=== PATIENT | female | born 1950 | race Caucasian/White ===

== ENCOUNTER → 2018-01-19 10:24 | Outpatient (CLI) | payer MEDICARE, SELFPAY ==
--- NOTE | 2018-01-19 | DI.RAD.S_ITS ---
This blank DEXA report has been sent in error by the PACS system. The correct and complete report will be forthcoming in 1-2 days. Thank you for your patience and understanding. Dictated by: Ashley Otoole MD, PhD on 01/19/2018 at 11:16 Approved by: Ashley Otoole MD, PhD on 01/19/2018 at 11:17
[2018-01-19 12:10] LABS: Add Manual Diff / Slide Review NO; Basophils Percent Auto 0.9 % (0-2); Eosinophils Percent Auto 3.2 % (2-4); Hematocrit 42.5 % (36-46); Hemoglobin 14.2 g/dL (12.0-16.0); Lymphocytes Percent Auto 31.6 % (25-40); Mean Corpuscular HGB Conc 33.4 % (30-36); Mean Corpuscular Hemoglobin 29.3 PG (26-34); Mean Corpuscular Volume 87.8 fL (80-100); Monocytes Percent Auto 8.1 % (3-14); Neutrophils Absolute Auto 2300 /uL (3000-5900); Neutrophils Percent Auto 56.2 % (50-75); Platelet Count 321 X10^3/uL (150-400); Red Blood Cell Count 4.84 X10^6/uL (4.0-5.2); Red Cell Distribution Width 12.7 % (11.6-14.8); White Blood Cell Count 4.2 X10^3/uL (4.5-11.0)
[2018-01-19 12:23] LABS: Alanine Aminotransferase 25 IU/L (9-52); Albumin 4.6 g/dL (3.5-5.0); Albumin Globulin Ratio 1.4 (1.0-2.8); Alkaline Phosphatase 167 U/L (38-126); Aspartate Aminotransferase 30 IU/L (14-36); BUN Creatinine Ratio 16.7 (6-22); Bilirubin Total 0.5 mg/dL (0.2-1.3); Blood Urea Nitrogen 15 mg/dL (7-17); Calcium 9.9 mg/dL (8.4-10.2); Carbon Dioxide 34 mmol/L (22-32); Chloride 98 mmol/L (98-107); Estimated Glomerular Filt Rate > 60.0 mL/min (>60); Globulin 3.2 g/dL (1.7-4.1); Glucose 89 mg/dL (80-110); HEMOLYSIS < 15 (0-50); Sodium 144 mmol/L (137-145); Total Protein 7.8 g/dL (6.3-8.2)
[2018-01-19 12:37] LABS: Free T4, Direct Thyroxine 1.24 ng/dL (0.78-2.19)
[2018-01-19 12:51] LABS: Thyroid Stimulating Hormone 1.53 uIU/mL (0.47-4.68)
[2018-01-19 14:57] LABS: Vitamin D 25 Hydroxy (D3) 43.4 ng/mL (30.0-100.0)
== END ==
PROVIDERS: PCP Internal Medicine; Visit Provider Nurse Practitioner Family
DX: M81.0 Age-related osteoporosis without current pathological fracture (principal); Z78.0 Asymptomatic menopausal state; R53.83 Other fatigue; E55.9 Vitamin D deficiency, unspecified; Z13.6 Encounter for screening for cardiovascular disorders; Z82.62 Family history of osteoporosis; Z51.81 Encounter for therapeutic drug level monitoring
CPT/HCPCS: 36415; 77080; 80053; 82306; 84439; 84443; 84481; 85025

== ENCOUNTER → 2018-02-28 17:18 | Outpatient (CLI) | payer MEDICARE, SELFPAY ==
--- NOTE | 2018-02-28 | DI.RAD.S_ITS ---
PROCEDURE: XR LUMBAR SPINE MIN 4V INDICATIONS: PAIN TECHNIQUE: 5 views of the lumbar spine were acquired including both obliques. COMPARISON: None. FINDINGS: Bones: 5 nonrib-bearing vertebrae are present. There is levoscoliotic bony alignment centered at L3, 28? convex leftward. On the frontal projection there is also near vikv-mo-iutn articulation between the endplates of L2 and L3 with approximately 1 cm of rightward subluxation of the L2 vertebral body across the upper end plate of L3. Xyby-ei-etwk apposition along the right margin of the L3-4 disc space is present. There is moderately severe to severe degenerative disc disease and facet osteoarthritis from L2 inferiorly with likelihood of significant spinal and foraminal stenosis as a result. No vertebral body compression fractures. No suspicious bony lesions. Soft tissues: Overlying bowel gas pattern is normal except for generalized colonic obstipation. No suspicious soft tissue calcifications. Oblique images: No pars defects. IMPRESSION: Degenerative disc disease and facet osteoarthritis is moderately severe to severe from L2 inferiorly, and this is associated with prominent convex leftward scoliosis centered at all 3 knee with svbh-gu-oplh articulation at the L2-3 disc space across the surface of the endplates and right-sided L3-L4 dbwp-kt-[id number] articulation. Abnormal lateral subluxation is present, rightward, of L2 on L3 by approximately 1 cm. Significant spinal or foraminal stenosis would be expected given the degree of degenerative disc disease, facet osteoarthritis, and also scoliosis. No acute trauma found. Dictated by: Surjit Riley M.D. on 03/01/2018 at 8:39 Approved by: Surjit Riley M.D. on 03/01/2018 at 8:45
== END ==
PROVIDERS: PCP Internal Medicine; Visit Provider Chiropractor
DX: M51.36 Other intervertebral disc degeneration, lumbar region (principal); M47.816 Spondylosis without myelopathy or radiculopathy, lumbar region; M99.02 Segmental and somatic dysfunction of thoracic region; M99.01 Segmental and somatic dysfunction of cervical region; S29.012A Strain of muscle and tendon of back wall of thorax, initial encounter; M54.5 Low back pain
CPT/HCPCS: 72110

== ENCOUNTER → 2019-02-11 09:49 | Outpatient (CLI) | payer MEDICARE, SELFPAY ==
[2019-02-11 10:43] LABS: Alanine Aminotransferase 21 IU/L (9-52); Albumin 4.4 g/dL (3.5-5.0); Albumin Globulin Ratio 1.6 (1.0-2.8); Alkaline Phosphatase 107 U/L (38-126); Aspartate Aminotransferase 29 IU/L (14-36); BUN Creatinine Ratio 17.5 (6-22); Bilirubin Total 0.6 mg/dL (0.2-1.3); Blood Urea Nitrogen 14 mg/dL (7-17); Calcium 9.8 mg/dL (8.4-10.2); Carbon Dioxide 33 mmol/L (22-32); Chloride 101 mmol/L (98-107); Cholesterol 161 mg/dL (140-199); Estimated Glomerular Filt Rate > 60.0 mL/min (>60); Globulin 2.8 g/dL (1.7-4.1); Glucose 91 mg/dL (80-110); HDL Cholesterol 69 mg/dL (40-60); HEMOLYSIS < 15 (0-50); LDL Cholesterol Calculated 81 mg/dL (<100); Potassium 4.7 mmol/L (3.4-5.1); Sodium 139 mmol/L (137-145); Total Protein 7.2 g/dL (6.3-8.2); Triglycerides 57 mg/dL (35-150)
[2019-02-11 10:58] LABS: Vitamin D 25 Hydroxy (D3) 65.6 ng/mL (30.0-100.0)
[2019-02-11 11:13] LABS: TSH w/ Reflex to FT4 1.92 uIU/mL (0.47-4.68)
== END ==
PROVIDERS: PCP Internal Medicine; Visit Provider Internal Medicine
DX: Z13.220 Encounter for screening for lipoid disorders (principal); M81.0 Age-related osteoporosis without current pathological fracture; L65.9 Nonscarring hair loss, unspecified
CPT/HCPCS: 36415; 80053; 80061; 82306; 84443

== ENCOUNTER → 2019-02-20 15:50 | Outpatient (CLI) | payer MEDICARE, SELFPAY ==
--- NOTE | 2019-02-20 | DI.RAD.S_ITS ---
PROCEDURE: XR HAND RT MIN 3V INDICATIONS: bilateral hand pain TECHNIQUE: 3 views of the hand(s) acquired. COMPARISON: None. FINDINGS: Bones: No fractures or dislocations. Carpal bones are normally aligned. No suspicious bony lesions. There are mild degenerative changes of the right first carpal metacarpal joint, the right first metacarpal phalangeal joint, and the right first interphalangeal joint as evidenced by periarticular sclerosis and joint space narrowing. There are also minimal degenerative changes of the second through fifth interphalangeal joints. Soft tissues: No suspicious soft tissue calcifications. IMPRESSION: Degenerative changes of the right hand as described above, with worst involvement of the right first digit. Dictated by: Karlos Weston M.D. on 02/20/2019 at 17:43 Approved by: Karlos Weston M.D. on 02/20/2019 at 17:46
--- NOTE | 2019-02-20 | DI.RAD.S_ITS ---
PROCEDURE: XR HAND LT MIN 3V INDICATIONS: bilateral hand pain TECHNIQUE: 3 views of the hand(s) acquired. COMPARISON: [facility], CR, XR HAND RT MIN 3V, 02/20/2019, 16:06. FINDINGS: Bones: No fractures or dislocations. Carpal bones are normally aligned. No suspicious bony lesions. There are moderate degenerative changes of the left second distal interphalangeal joint as evidenced by joint space narrowing and periarticular sclerosis. There are minimal degenerative changes of the first, third, fourth, and fifth interphalangeal joints. There are minimal degenerative changes of the left first carpal metacarpal and left first metacarpal phalangeal joints. Soft tissues: No suspicious soft tissue calcifications. IMPRESSION: Degenerative changes of the left hand as described above, worst at the left second distal interphalangeal joint. Dictated by: Karlos Weston M.D. on 02/20/2019 at 17:40 Approved by: Karlos Weston M.D. on 02/20/2019 at 17:43
== END ==
PROVIDERS: Visit Provider Nurse Practitioner Family
DX: M79.641 Pain in right hand (principal); M79.642 Pain in left hand
CPT/HCPCS: 73130

== ENCOUNTER → 2019-06-20 12:59 | Outpatient (CLI) | payer MEDICARE, SELFPAY ==
--- NOTE | 2019-06-20 | DI.RAD.S_ITS ---
PROCEDURE: XR CHEST 2V INDICATIONS: COUGH TECHNIQUE: 2 views of the chest were acquired. COMPARISON: None. FINDINGS: Surgical changes and devices: None. Lungs and pleura: Lungs are clear. No pleural effusions or pneumothorax. Mediastinum: Mediastinal contours are normal. Heart size is normal. Bones and chest wall: No suspicious bony abnormalities. Soft tissues appear unremarkable. IMPRESSION: Normal for age, source of current cough symptoms is not seen. Dictated by: Surjit Riley M.D. on 06/20/2019 at 13:27 Approved by: Surjit Riley M.D. on 06/20/2019 at 13:27
== END ==
PROVIDERS: Referring Provider Nurse Practitioner Family; Visit Provider Nurse Practitioner Family
DX: R05 Cough (principal)
CPT/HCPCS: 71046

== ENCOUNTER → 2019-08-29 10:19 | Outpatient (CLI) | payer MEDICARE, SELFPAY ==
[2019-08-31 17:30] LABS: COVID19 Sendout Not Detected (Not Detected)
== END ==
PROVIDERS: Visit Provider Family Medicine
DX: R68.89 Other general symptoms and signs (principal)
CPT/HCPCS: 87635

== ENCOUNTER → 2019-08-29 12:00 | Outpatient (CLI) | payer MEDICARE, SELFPAY ==
[2019-08-29 12:36] LABS: Add Manual Diff / Slide Review NO; Basophils Absolute Auto 0 /uL (0-100); Eosinophils Absolute Auto 600 /uL (0-450); Eosinophils Percent Auto 12.2 % (2-4); Hematocrit 41.3 % (36-46); Hemoglobin 13.9 g/dL (12.0-16.0); Lymphocytes Absolute Auto 1300 /uL (1100-4500); Lymphocytes Percent Auto 26.7 % (25-40); Mean Corpuscular HGB Conc 33.7 % (30-36); Mean Corpuscular Hemoglobin 29.9 PG (26-34); Mean Corpuscular Volume 88.8 fL (80-100); Monocytes Absolute Auto 300 /uL (0-900); Monocytes Percent Auto 6.8 % (3-14); Neutrophils Absolute Auto 2500 /uL (1500-7000); Neutrophils Percent Auto 53.3 % (50-75); Platelet Count 302 X10^3/uL (150-400); Red Blood Cell Count 4.65 X10^6/uL (4.0-5.2); Red Cell Distribution Width 13.2 % (11.6-14.8); White Blood Cell Count 4.7 X10^3/uL (4.5-11.0)
[2019-08-29 12:57] LABS: Alanine Aminotransferase 19 IU/L (<35); Albumin 4.6 g/dL (3.5-5.0); Albumin Globulin Ratio 1.5 (1.0-2.8); Alkaline Phosphatase 143 U/L (38-126); Aspartate Aminotransferase 31 IU/L (14-36); BUN Creatinine Ratio 17.6 (6-22); Bilirubin Total 0.3 mg/dL (0.2-1.3); Blood Urea Nitrogen 15 mg/dL (7-17); Calcium 9.9 mg/dL (8.4-10.2); Carbon Dioxide 30 mmol/L (22-32); Chloride 100 mmol/L (98-107); Estimated Glomerular Filt Rate > 60.0 mL/min (>60); Globulin 3.1 g/dL (1.7-4.1); Glucose 66 mg/dL (80-110); HEMOLYSIS < 15 (0-50); Potassium 4.3 mmol/L (3.4-5.1); Sodium 139 mmol/L (137-145); Total Protein 7.7 g/dL (6.3-8.2)
[2019-08-30 19:43] LABS: ANA Screen, IFA Negative (.)
== END ==
PROVIDERS: Internal Medicine; Referring Provider Nurse Practitioner; Visit Provider Nurse Practitioner
DX: R05 Cough (principal); R68.89 Other general symptoms and signs; R50.9 Fever, unspecified; R53.83 Other fatigue; R11.0 Nausea
CPT/HCPCS: 36415; 80053; 85025; 86038; 87635

== ENCOUNTER → 2019-10-10 15:20 | Outpatient (ROUT) | payer MEDICARE, SELFPAY ==
[2019-10-10 15:23] LABS: Bacteria Urine None Seen; RBC Urine None Seen (0-5/HPF); WBC Urine None Seen (0-5/HPF)
[2019-10-10 15:36] LABS: Appearance Urine UA CLEAR; Bilirubin Urine UA NEGATIVE (NEGATIVE); Color Urine UA YELLOW; Glucose Urine UA NEGATIVE (Negative); Ketones Urine UA NEGATIVE (NEGATIVE); Leukocyte Esterase Urine UA NEGATIVE (NEGATIVE); Nitrite Urine UA NEGATIVE (Negative); Occult Blood Urine UA TRACE-INTACT (Negative); Protein Urine UA NEGATIVE (Negative); Specific Gravity Urine UA <=1.005 (1.000-1.035); Urobilinogen Urine UA 0.2 E.U./dL (0.2)
[2019-10-10 15:43] LABS: Culture Indicated Urine Cult Not Indicated; Urine Comments Microscopic Normal
== END ==
PROVIDERS: Visit Provider Nurse Practitioner Family
DX: R30.0 Dysuria (principal)
CPT/HCPCS: 81001

== ENCOUNTER → 2019-10-29 16:36 | Outpatient (CLI) | payer MEDICARE, SELFPAY ==
[2019-10-29 17:38] LABS: Bacteria Urine None Seen; WBC Urine None Seen (0-5/HPF)
[2019-10-29 18:43] LABS: Appearance Urine UA CLEAR; Bilirubin Urine UA NEGATIVE (NEGATIVE); Color Urine UA YELLOW; Glucose Urine UA NEGATIVE (Negative); Ketones Urine UA NEGATIVE (NEGATIVE); Leukocyte Esterase Urine UA NEGATIVE (NEGATIVE); Nitrite Urine UA NEGATIVE (Negative); Occult Blood Urine UA TRACE-INTACT (Negative); Protein Urine UA NEGATIVE (Negative); Specific Gravity Urine UA <=1.005 (1.000-1.035); Urobilinogen Urine UA 0.2 E.U./dL (0.2)
[2019-10-29 18:55] LABS: pH Urine UA 5.5 (4.5-8.0)
[2019-10-29 19:00] LABS: RBC Urine 0-1/HPF (0-5/HPF); Squamous Epithelial Cell Urine 0-1 /HPF (0-5/HPF)
[2019-10-29 19:01] LABS: Culture Indicated Urine Cult Not Indicated
== END ==
PROVIDERS: Referring Provider Internal Medicine; Visit Provider Internal Medicine
DX: R30.0 Dysuria (principal)
CPT/HCPCS: 81001

== ENCOUNTER → 2019-11-04 16:09 | Outpatient (CLI) | payer MEDICARE, SELFPAY | PROVIDERS: Visit Provider Obstetrics & Gynecology | DX: R39.9 Unspecified symptoms and signs involving the genitourinary system (principal) | CPT/HCPCS: 87086 ==

== ENCOUNTER → 2019-11-07 13:13 | Outpatient (CLI) | payer MEDICARE, SELFPAY ==
--- NOTE | 2019-11-07 13:15 | DI.US.S_ITS ---
PROCEDURE: US PELVIC COMPLETE INDICATIONS: PELVIC PAIN TECHNIQUE: Real-time scanning was performed of the pelvic organs, with image documentation. Additional endovaginal scanning was necessary due to incomplete visualization of the adnexal and endometrial structures by transabdominal scanning. COMPARISON: None. FINDINGS: Transabdominal scanning: Limited scanning through the kidneys shows no hydronephrosis. No pathologic free abdominal or pelvic fluid. Endovaginal scanning: Uterus: Uterus is normal in size at 6.2 x 2.2 x 4.5 cm. The endometrium measures 4.0 mm in combined thickness. Endocervical fluid present and there is a 5 mm complex appearing a vascular polypoid mass. Ovaries: Ovaries are normal bilaterally measuring 2.2 x 2.0 x 0.8 cm on the right and 1.8 x 1.2 x 1.6 cm on the left. IMPRESSION: 1. Small amount of fluid within the endocervical canal and a vascular mass which may represent a polyp or other neoplastic process; however findings may also be related to retained clot. Recommend follow-up ultrasound in 4-6 weeks to assess for interval resolution. 2. No source for pelvic pain identified. Dictated by: Ashvin Simpson [facility] Interpreted: Ashley Otoole MD on 11/07/2019 at 15:06 Approved by: Ashley Otoole MD, PhD on 11/07/2019 at 18:11
== END ==
PROVIDERS: PCP Nurse Practitioner; Referring Provider Obstetrics & Gynecology; Visit Provider Obstetrics & Gynecology
DX: R10.2 Pelvic and perineal pain (principal); N85.9 Noninflammatory disorder of uterus, unspecified
CPT/HCPCS: 76830; 76856

== ENCOUNTER → 2019-12-03 11:39 | Outpatient (CLI) | payer MEDICARE, SELFPAY ==
[2019-12-03 12:51] LABS: COVID19 -Nasal RAPID Negative (Negative)
== END ==
PROVIDERS: PCP Nurse Practitioner; Visit Provider Physician Assistant
DX: Z11.59 Encounter for screening for other viral diseases (principal)
CPT/HCPCS: 87635

== ENCOUNTER 2019-12-04 08:18 | Day surgery (SDC) | payer MEDICARE, SELFPAY ==
--- NOTE | 2019-12-04 | PATH_ITS ---
[facility] Accession Number: [id number] . 01 Material submitted: . PART A: colon - TRANSVERSE COLON POLYP PART B: sigmoid colon - SIGMOID COLON POLYP . 02 Diagnosis: A. Transverse Colon Polyp: Sessile serrated adenoma. . B. Sigmoid Colon Polyp: Tubular adenoma. [facility] 12/05/2019 1536 Local . 02 Electronically signed: . Romina Holland MD, Pathologist NPI- [id number] . 01 Gross description: . Part A: TRANSVERSE COLON POLYP: Received in formalin is 1 fragment(s) of calero, soft tissue measuring 0.9 x 0.3 x 0.2 cm submitted entirely in 1 cassette(s) Part B: SIGMOID COLON POLYP: Received in formalin is 1 fragment(s) of calero, soft tissue measuring 0.8 x 0.4 x 0.4 cm submitted entirely in 1 cassette(s) /LING 12/05/2019 0154 Local . 02 Pathologist provided ICD-10: K63.5 . 02 CPT . 220088, [id number] Performed at: 01 [facility] [address], [place], [place] [id number] MD Uri Strickland MD Phone: [phone] Performed at: 02 [facility] [address] [place], [place] [id number] MD Claudia Ramsay MD Phone: [phone]
[2019-12-04 08:36] VITALS: BP 124/68; PULSE 68; RESP 16; TEMP 36.4; O2SAT 98; BMI 24.1
[2019-12-04] MEDS: LACTATED RINGERS 1,000 ML 200 ML IV (08:52)
--- NOTE | 2019-12-04 09:19 | P.HP_ITS ---
History of Present Illness History of Present Illness Chief complaint: [facility] [place] Patient History Medical History Chicken pox (Resolved) Headache (Acute) Hypothyroidism (Acute ~2019) Measles (Resolved) Osteoarthritis (Chronic ~2018) Post traumatic stress disorder (PTSD) (Chronic ~1999) Surgical History Anesthesia (Resolved) H/O section (Acute) History of foot surgery (Resolved ~2014) History of tonsillectomy (Resolved ~1957) Family & Social History Family History Father History of heart disease Mother Cancer Stroke Grandmother Diabetes mellitus Mental health problem Alcoholism Grandfather Cancer Grandmother Mental health problem Social History: household members none Tobacco & Substance use: Smoking Status Never smoker alcohol intake frequency holiday/special occasion Substance Use Type does not use Meds Home Medications and Allergies Home Medications Medication Instructions Recorded Confirmed Type bupropion HCl 300 mg 24 hr tablet, 300 mg PO QDAY #90 tab 11/11/19 12/04/19 Rx extended release Allergies Allergy/AdvReac Type Severity Reaction Status Date / Time Sulfa (Sulfonamide Allergy Intermediate Hives, Verified 11/04/19 15:59 Antibiotics) High Fever Review of Systems Review of Systems ROS: Yes All systems reviewed with the patient and are negative except as otherwise documented Exam Vital Signs (past 8 hours): - 12/04/19 08:36 Temperature 97.6 F Pulse Rate 68 Respiratory Rate 16 Blood Pressure 124/68 Pulse Oximetry 98 Oxygen Delivery Method Room Air Narrative Exam Narrative: Awake alert oriented x3, no acute distress, heart regular rate and rhythm, lungs clear to auscultation, no lower extremity edema Assessment & Plan Assessment & Plan narrative: Colon cancer screening for colonoscopy COVID-19 COVID-19 status: Negative
--- NOTE | 2019-12-04 09:47 | PM.OP.ENDO ---
Operative Date/Time/Diagnoses Date of procedure: 12/04/19 Procedure & Clinicians Study performed: Colonoscopy with snare polypectomy Moderate conscious sedation was administered by the endoscopy nurse and supervised by the endoscopist. The following parameters were monitored: Oxygen saturation, heart rate, blood pressure, and response to care. 4mg midazolam and 100mcg fentanyl given. Same procedure as scheduled: Yes Indications: Colon cancer screening. Last colonoscopy was >10 years ago. Average risk. Procedure Notes Procedure in detail: Prior to the procedure, history and physical was performed, and patient medications and allergies were reviewed. Preprocedure nursing history and assessment was reviewed. Patient identification and proposed procedure were verified by the physician and nurse in the procedure room. The physical status of the patient was reassessed after the procedure. After informed consent was obtained including risks, benefits, and alternatives, the scope was passed under direct vision. Throughout the procedure, the patient's blood pressure, pulse, and oxygen saturations were monitored continuously. The pediatric colonoscope was introduced through the anus and advanced to the cecum as identified by the appendiceal orifice and ileocecal valve. The patient tolerated the procedure well. Bowel prep was deemed adequate to detect polyps greater than 5 mm. Perianal and digital rectal examinations were unremarkable. Retroflexion in the rectum revealed grade 1 internal hemorrhoids. There was significant looping in the sigmoid colon. The entire colon was mildly tortuous A 5 mm sessile polyp in the transverse colon and a 7 mm sessile polyp in the sigmoid colon were resected with a cold snare and retrieved Impression: Internal hemorrhoids Tortuous colon with looping in the sigmoid colon A 5 mm and 7 mm polyps were removed from the transverse colon and sigmoid colon respectively Sedation minutes: 24 Complications: other (EBL minimal. No complications) Post-procedure Plan for aftercare: Follow-up pathology results Repeat colonoscopy had a date to be determined based on pathology results Resume previous diet Resume home medications Patient has a contact number available for emergencies. The signs and symptoms of potential delayed complications were discussed with the patient. Return to normal activities tomorrow. Written discharge instructions were provided to the patient. Discharge home with escort
[2019-12-04 09:50] VITALS: BP 111/62; PULSE 58; RESP 16; TEMP 36.3; O2SAT 100
[2019-12-04] MEDS: fentaNYL 250 MCG/5 ML INJ IV (09:50)
[2019-12-04] MEDS: MIDAZOLAM 5 MG/5 ML VIAL IV (09:50)
[2019-12-04 09:56] VITALS: BP 99/59; PULSE 59; RESP 15; O2SAT 100
[2019-12-04 10:01] VITALS: BP 109/62; PULSE 56; RESP 15; O2SAT 100
[2019-12-04 10:04] VITALS: BP 103/63; PULSE 63; RESP 16; TEMP 36.6; O2SAT 100
[2019-12-04 10:20] VITALS: BP 117/63; PULSE 52; RESP 14; TEMP 36.2; O2SAT 100
--- NOTE | 2019-12-04 10:26 | SUR.PHASEII ---
Pt comfortable, states that the procedure was 'about 80% easier than i expected. Tolerating PO well, no questions/concerns. Stable
== END 2019-12-04 10:32 | disposition home or self-care (01) ==
PROVIDERS: PCP Internal Medicine; Referring Provider Internal Medicine; Visit Provider Internal Medicine
PROC: 0DJD8ZZ Inspection of Lower Intestinal Tract, Via Natural or Artificial Opening Endoscopic (ICD-10-PCS; CPT 45378; principal; 2019-12-04 09:00)
DX: Z12.11 Encounter for screening for malignant neoplasm of colon (principal); K64.0 First degree hemorrhoids; D12.3 Benign neoplasm of transverse colon; D12.5 Benign neoplasm of sigmoid colon
CPT/HCPCS: 45385; J2250; J3010